=== PATIENT | male | born 1960 | race Caucasian/White ===

== ENCOUNTER 2016-07-08 15:55 | Inpatient (IN) | payer OTHER ==
[~2016-07-08] VITALS: Ht 182.9 cm; Wt 69.7 kg
[2016-07-08 20:40] VITALS: BP 106/69; PULSE 84; RESP 20
[2016-07-08 20:51] VITALS: Ht 182.9 cm; Wt 69.7 kg
[2016-07-08] MEDS ORDERED: DOCUSATE SODIUM 250 MG CAP PO PRN (21:30)
[2016-07-08] MEDS ORDERED: SENNA TAB PO PRN (21:30)
[2016-07-08] MEDS ORDERED: ONDANSETRON 4 MG INJ IV PRN (21:30)
[2016-07-08] MEDS: METOPROLOL 25 MG TAB PO SCH (21:30)
[2016-07-08] MEDS ORDERED: HYDROCODONE/APAP (10/325) TAB PO PRN (21:30)
[2016-07-08] MEDS: morphine 4 MG/ML VIAL IV PRN (22:46)
[2016-07-09 03:44] LABS: ADD UMIC NO; URINE BILIRUBIN (Dip) NEGATIVE (NEGATIVE); URINE BLOOD (Dip) NEGATIVE (NEGATIVE); URINE COLOR YELLOW (YELLOW); URINE GLUCOSE (Dip) NEGATIVE (NEGATIVE); URINE KETONES (Dip) NEGATIVE (NEGATIVE); URINE LEUKOCYTE ESTERASE (Dip) NEGATIVE (NEGATIVE); URINE NITRITE (Dip) NEGATIVE (NEGATIVE); URINE TOTAL PROTEIN (Dip) NEGATIVE (NEGATIVE); URINE UROBILINOGEN (Dip) 0.2 E.U./dL (0.1-1.0)
[2016-07-09] MEDS: HYDROCODONE/APAP (10/325) TAB PO PRN ×2 (04:12→13:24)
[2016-07-09 07:09] LABS: ADD SCAN DIFF NO
[2016-07-09 07:13] LABS: BASOPHILS % 0.4 % (0.0-2.0); EOSINOPHILS # 0.3 10^3/ul (0.0-0.5); EOSINOPHILS % 4.5 % (0.0-7.0); HEMATOCRIT 32.4 % (42.0-52.0); HEMOGLOBIN 10.2 g/dl (14.0-18.0); LYMPHOCYTES # 2.6 10^3/ul (0.8-2.9); LYMPHOCYTES % 35.3 % (15.0-51.0); MEAN CORPUSCULAR HEMOGLOBIN 32.5 pg (29.0-33.0); MEAN CORPUSCULAR HGB CONC 31.5 g/dl (32.0-37.0); MEAN CORPUSCULAR VOLUME 103.2 fl (82.0-101.0); MEAN PLATELET VOLUME 10.2 fl (7.4-10.4); MONOCYTE # 0.9 10^3/ul (0.3-0.9); MONOCYTES % 12.9 % (0.0-11.0); NEUTROPHIL # 3.4 10^3/ul (1.6-7.5); NEUTROPHILS % 46.8 % (39.0-77.0); PLATELET COUNT 201 10^3/UL (140-415); RED BLOOD COUNT 3.14 10^6/ul (4.70-6.10); RED CELL DISTRIBUTION WIDTH 11.9 % (11.5-14.5); WHITE BLOOD COUNT 7.3 10^3/ul (4.8-10.8)
[2016-07-09 07:31] LABS: ALBUMIN 2.9 g/dl (3.3-4.9)
[2016-07-09 07:32] LABS: POTASSIUM 3.9 mmol/L (3.5-5.1)
[2016-07-09 07:34] LABS: BILIRUBIN,INDIRECT 0.7 mg/dl (0-1.1); BILIRUBIN,TOTAL 0.7 mg/dl (0.2-1.3); CREATININE 0.84 mg/dl (0.61-1.24)
[2016-07-09 07:35] LABS: ALBUMIN/GLOBULIN RATIO 0.96; CALCIUM 8.2 mg/dl (8.4-10.2); TOTAL PROTEIN 5.9 g/dl (6.1-8.1)
[2016-07-09 07:48] VITALS: BP 110/71; RESP 18
[2016-07-09] MEDS: morphine 4 MG/ML VIAL IV PRN ×2 (08:26→18:50)
[2016-07-09] MEDS: METOPROLOL 25 MG TAB PO SCH ×2 (08:29→20:50)
--- NOTE | 2016-07-09 11:10 | HP ---
DATE OF ADMISSION: 07/08/2016 CHIEF COMPLAINT: Status post total right knee replacement. HISTORY OF PRESENT ILLNESS: A 56-year-old male with a past medical history of right knee osteoarthr itis related to a work injury on 10/13/2011. The patient since that injury has had difficulty walkin g, failed conservative management. As a result, he was seen by Dr. Baugh and told that he had sever e osteoarthritis with a determination made to undergo total right knee arthroplasty. This surgery w as performed on 07/05/2016. The patient's surgery was done without any complication. Postoperativel y, the patient was stable; however, he had a significant decline in premorbid condition and as a res ult he was brought over to [facility] acute rehab for continued physical therapy. Upon my evaluation of the patient at this time, he is currently stable. Denies any fevers, chills, nausea, vomiting. The patient is complaining of pain in his right knee PAST MEDICAL HISTORY: History of hypertension, previous history of polysubstance abuse. PAST SURGICAL HISTORY: None. ALLERGIES: NO KNOWN DRUG ALLERGIES. FAMILY HISTORY: No family history of kidney disease or heart disease. SOCIAL HISTORY: Does not actively drink, previous history of drug use. REVIEW OF SYSTEMS: A 14-point review of systems was conducted. Pertinent positives as stated in HP I, otherwise negative. MEDICATIONS: The patient's medications have been reviewed and reconciled. PHYSICAL EXAMINATION: VITAL SIGNS: Blood pressure 110/71, respirations 18, pulse 89, temperature 97.9. HEENT: Head is normocephalic. Pupils are reactive to light. NECK: Supple. HEART: Regular rate. LUNGS: Show diminished breath sounds at the base. ABDOMEN: Soft, nontender to palpation. No rebound or guarding. EXTREMITIES: Negative for clubbing, cyanosis, edema on the left leg. Right leg has dressings clean , dry, intact. NEUROLOGIC: No focal deficits. MUSCULOSKELETAL: No joint effusions. LABORATORY DATA: Shows sodium 139, potassium 3.9, chloride 28, BUN 14, creatinine 0.84. White coun t 7.3, hemoglobin 10.2, hematocrit 32.4, platelet count is 201. ASSESSMENT AND PLAN: This is a 56-year-old male who presents with: 1. Status post total right knee arthroplasty. The plan is for the patient received PT, OT. Contin ue pain control. 2. Deep venous thrombosis prophylaxis with Xarelto. 3. Hypertension. Blood pressure currently controlled. Continue hydralazine, metoprolol and adjust medications as needed. 4. History of polysubstance abuse. Will continue to monitor. 5. Anemia, likely due to postoperative blood loss. Continue to monitor H and H levels. No evidenc e of bleed at this time. 6. Gastrointestinal and deep venous thrombosis prophylaxis. Continue PPI and Xarelto. 7. Chronic pain syndrome. Continue current pain regimen. Please note, I spent up to 25 minutes of face to face time with the patient. The patient is FULL COD E. Dictated By: EMILY SCHROEDER/RANDALL Conf#: [id number] DID#: [id number]
[2016-07-09] MEDS: PANTOPRAZOLE (EC) 40 MG TAB PO SCH (11:14)
--- NOTE | 2016-07-09 12:44 | CONS ---
DATE OF ADMISSION: 07/08/2016 DATE OF CONSULTATION: 07/09/2016 TYPE OF CONSULTATION: Rehabilitation post-admission physician evaluation REHABILITATION IMPAIRMENT CATEGORY: Other orthopedic injury with patient status post right total kn ee replacement. ACTIVE COMORBIDITIES: 1. Acute pain syndrome. 2. History of substance abuse. 3. Hypertension. 4. Impairments in self-care and mobility. HISTORY OF PRESENT ILLNESS: The patient is a 56-year-old gentleman with a history of related injur y in 2011 with subsequent worsening right knee pain despite conservative measures. The patient was admitted to [facility] and did undergo a right total knee replacement. The patient's pos toperative course has been notable for significant pain in addition to impairments in self-care and mobility as compared to baseline. The patient has now been cleared to transfer to the rehabilitatio n unit for comprehensive interdisciplinary rehab care. FUNCTIONAL HISTORY: Prior to recent events, he was independent in self-care tasks and mobility. Cu rrently, the patient requires minimal assist for self-care and mobility tasks. SOCIAL HISTORY: The patient reports living at home and hopes to return there upon discharge. PAST MEDICAL HISTORY: 1. Right knee osteoarthritis. 2. History of substance abuse. 3. Hypertension. CURRENT MEDICATIONS: 1. Lopressor 25 mg p.o. b.i.d. 2. Xarelto 10 mg p.o. daily. 3. Hydralazine 50 mg p.o. t.i.d. 4. Senokot p.r.n. 5. [place] p.r.n. ALLERGIES: THE PATIENT WITH NO KNOWN DRUG ALLERGIES. PHYSICAL EXAMINATION: VITAL SIGNS: The patient is currently afebrile with stable vital signs. HEENT: Extraocular motion intact. Oropharynx clear. NECK: Supple. LUNGS: Clear anteriorly. CARDIAC: S1, S2. ABDOMEN: Soft, nontender, positive bowel sounds. NEUROLOGIC: He is awake and alert and oriented x3, can follow simple 1-step commands. Cranial nerv es are grossly intact. He has good strength in bilateral upper extremity in addition to the left lo wer extremity. Dorsiflexion and plantar flexion intact on the right. PLAN: The patient has been admitted for comprehensive interdisciplinary acute rehab and is anticipa trina to tolerate 3 hours of daily therapy in divided doses for at least 5/7 days a week. Treatment p paula will include: 1. Physical therapy to focus on bed mobility, transfers, and household ambulation with the goal of having the patient reach standby assist level. 2. Occupational therapy to focus on hygiene, grooming, dressing, bathing, and toileting activities with goal of having the patient reach standby assist level. 3. Rehabilitation nursing for carryover of therapeutic interventions, the goal of continent of lonnie l and bladder, and the goal of pain adequately managed on oral medications. ESTIMATED LENGTH OF STAY: 10 days. DISPOSITION GOAL: Home. REHABILITATION BARRIER: Pain. INTERVENTION FOR BARRIER: Comprehensive interdisciplinary approach. I acknowledge that I performed a full physical examination on this patient within 24 hours of admiss ion to the rehabilitation unit. I believe the patient is a good candidate for comprehensive interdi sciplinary rehab care and is anticipated to make reasonable goals in a reasonable period of time as outlined above. Dictated By: DARYL PADGETT/NTS Conf#: [id number] DID#: [id number]
[2016-07-09] MEDS: RIVAROXABAN 10 MG TABLET PO SCH (17:42)
[2016-07-09 19:52] VITALS: BP 102/62; RESP 18
[2016-07-10] MEDS: HYDROCODONE/APAP (10/325) TAB PO PRN ×3 (00:22→17:46)
[2016-07-10] MEDS: morphine 4 MG/ML VIAL IV PRN ×3 (05:12→22:05)
[2016-07-10] MEDS: PANTOPRAZOLE (EC) 40 MG TAB PO SCH (05:12)
[2016-07-10 08:00] VITALS: BP 114/73; RESP 12
[2016-07-10] MEDS: METOPROLOL 25 MG TAB PO SCH ×2 (09:01→20:47)
--- NOTE | 2016-07-10 10:31 | PN ---
DATE: 07/10/2016 SUBJECTIVE: The patient is stable, no acute events overnight. No fevers, chills, nausea, vomiting. OBJECTIVE: VITAL SIGNS: Blood pressure 102/65, respirations 18, pulse 102, temperature 97.5. HEENT: Head is normocephalic. NECK: Supple. HEART: Regular rate. LUNGS: Show diminished breath sounds at the bases. ABDOMEN: Soft, nontender to palpation. No rebound or guarding. EXTREMITIES: Negative for clubbing, cyanosis, edema on the left leg. Right knee has a dressing, cl marcus, dry and intact. DERMATOLOGIC: No rashes. MUSCULOSKELETAL: No joint effusions. NEUROLOGIC: No focal deficits. MEDICATIONS: The patient's medications have been reviewed. LABORATORY DATA: Has been reviewed. No new labs. ASSESSMENT AND PLAN: 1. Status post total right knee arthroplasty. The patient currently is having pain, but controlled with medications, we will continue. Continue PT, OT. 2. Hypertension. Continue current blood pressure regimen. 3. History of polysubstance abuse. Continue to monitor. 4. Anemia, likely due to postoperative blood loss. Continue to monitor hemoglobin and hematocrit l evels. 5. Chronic pain syndrome. Continue current pain regimen. 6. Gastrointestinal and deep venous thrombosis prophylaxis. Continue proton pump inhibitor and Xar elto. Dictated By: EMILY SCHROEDER/RANDALL Conf#: [id number] DID#: [id number]
--- NOTE | 2016-07-10 13:19 | PN ---
Date/Time of Note Date/Time of Note DATE: 07/10/16 TIME: 13:16 Assessment/Plan VTE Prophylaxis VTE Prophylaxis Intervention: other (xarelto) Lines/Catheters IV Catheter Type (from Nrsg): Saline Lock Urinary Cath still in place: No Assessment/Plan Assessment/Plan 1. Status post right total knee arthroplasty. With impaired mobility/gait/ADLs. Continue PT/OT. Bed mobility and transfers improving now stand by assistance. 2. Acute post op pain syndrome with baseline chronic pain syndrome, and history of substance abuse. Pain controlled, continue current regimen including prn norco. 3. Anemia. Monitor hemoglobin/hematocrit. 4. Hypertension. BP controlled. Continue to monitor BP. Subjective 24 Hr Interval Summary Free Text/Dictation Rehab progress note Subjective:Reports moderate pain currently in right knee, reports alleviated with pain medications. ROS: Denies chest pain, no shortness of breath, no abdominal pain, no nausea, no chills. Exam/Review of Systems Vital Signs Vitals Vital Signs Date Time Temp Pulse Resp B/P Pulse Ox O2 Delivery O2 Flow Rate FiO2 07/10/16 08:00 99.0 104 12 114/73 96 07/08/16 20:40 Room Air Intake and Output 07/09/16 07/09/16 07/10/16 15:00 23:00 07:00 Intake Total 480 ml 240 ml 500 ml Output Total 600 ml 300 ml 700 ml Balance -120 ml -60 ml -200 ml Exam General: Awake, alert, no acute distress CV: Regular rate, s1s2 Lungs: Clear to auscultation, no wheezing Abdomen soft, nontender Extremities without cyanosis, Right knee surgical site with dressing in place, clean and dry Neuro: Follows simple commands. R DF/PF intact. Results Result Diagram: 07/09/16 0611 07/09/16 0611 Medications Medications Current Medications Metoprolol Tartrate (Lopressor) 25 mg BID PO Last administered on 07/10/16 09: 01; Admin Dose 25 MG; Start 07/08/16 at 21:30 Rivaroxaban (Xarelto) 10 mg DAILY@17 PO Last administered on 07/09/16 17:42; Admin Dose 10 MG; Start 07/09/16 at 17:00 Docusate Sodium (Colace) 250 mg BID PRN PO CONSTIPATION; Start 3/23/17 at 21: 30 Hydralazine HCl (Apresoline) 50 mg TID PO Last administered on 07/10/16 09:01 ; Admin Dose 50 MG; Start 07/08/16 at 21:30 Ondansetron HCl (Zofran Inj) 4 mg Q4H PRN IV NAUSEA AND/OR VOMITING; Start at 21:30 Senna (Senokot) 1 tab HS PRN PO CONSTIPATION; Start 07/08/16 at 21:30 Morphine Sulfate (morphine) 3 mg Q3H PRN IV SEVERE PAIN LEVEL 7-10 Last administered on 07/10/16 13:07; Admin Dose 3 MG; Start 07/08/16 at 21:30 Acetaminophen/ Hydrocodone Bitart ([place] (10/325)) 1 tab Q4H PRN PO MILD PAIN LEVEL 1-3; Start 07/08/16 at 21:30 Acetaminophen/ Hydrocodone Bitart ([place] (10/325)) 2 tab Q4H PRN PO MODERATE PAIN LEVEL 4-6 Last administered on 07/10/16 09:02; Admin Dose 2 TAB; Start at 21:30 Pantoprazole (Protonix Tab) 40 mg DAILY@06 PO Last administered on 07/10/16 05 :12; Admin Dose 40 MG; Start 07/09/16 at 10:30 FAREED SILVA Jul 10, 2016 13:19
[2016-07-10] MEDS: RIVAROXABAN 10 MG TABLET PO SCH (17:45)
[2016-07-10 19:59] VITALS: BP 112/70; RESP 18
[2016-07-10] MEDS: DOCUSATE SODIUM 100 MG CAP PO SCH (20:55)
[2016-07-11] MEDS: HYDROCODONE/APAP (10/325) TAB PO PRN ×3 (03:50→22:27)
[2016-07-11] MEDS: PANTOPRAZOLE (EC) 40 MG TAB PO SCH (06:31)
[2016-07-11 07:35] VITALS: BP 107/65; RESP 18
[2016-07-11 08:05] LABS: ADD SCAN DIFF NO
[2016-07-11 08:11] LABS: BASOPHILS % 0.5 % (0.0-2.0); EOSINOPHILS # 0.3 10^3/ul (0.0-0.5); EOSINOPHILS % 3.8 % (0.0-7.0); HEMATOCRIT 30.6 % (42.0-52.0); HEMOGLOBIN 9.8 g/dl (14.0-18.0); LYMPHOCYTES # 2.9 10^3/ul (0.8-2.9); LYMPHOCYTES % 43.9 % (15.0-51.0); MEAN PLATELET VOLUME 10.1 fl (7.4-10.4); MONOCYTE # 0.8 10^3/ul (0.3-0.9); MONOCYTES % 12.7 % (0.0-11.0); NEUTROPHIL # 2.5 10^3/ul (1.6-7.5); NEUTROPHILS % 38.8 % (39.0-77.0); PLATELET COUNT 225 10^3/UL (140-415); RED BLOOD COUNT 2.97 10^6/ul (4.70-6.10); RED CELL DISTRIBUTION WIDTH 11.6 % (11.5-14.5); WHITE BLOOD COUNT 6.5 10^3/ul (4.8-10.8)
[2016-07-11] MEDS: METOPROLOL 25 MG TAB PO SCH ×2 (09:00→21:00)
[2016-07-11] MEDS: DOCUSATE SODIUM 100 MG CAP PO SCH ×2 (09:21→21:00)
[2016-07-11] MEDS: morphine 4 MG/ML VIAL IV PRN ×2 (09:21→16:51)
--- NOTE | 2016-07-11 10:09 | PN ---
DATE: 07/11/2016 SUBJECTIVE: The patient is stable, no acute events overnight. OBJECTIVE: VITAL SIGNS: Blood pressure 107/65, respirations 18, pulse 79, temperature 98.4. HEENT: Head is normocephalic. NECK: Supple. HEART: Regular rate. LUNGS: Show diminished breath sounds at the base. ABDOMEN: Soft, nontender to palpation; no rebound or guarding. EXTREMITIES: Negative for clubbing, cyanosis, or edema on the left leg. Right knee has dressing cl marcus, dry, intact. DERMATOLOGIC: No rashes. MUSCULOSKELETAL: No joint effusion. NEUROLOGIC: No change in exam. MEDICATIONS: The patient's medications have been reviewed. LABORATORY DATA: Shows white count 6.5, hemoglobin 9.8, hematocrit 30.6, platelet count is 225. ASSESSMENT AND PLAN: 1. Status post total right knee arthroplasty. The patient is currently stable. Continue pain medi cation. Continue PT, OT. 2. Hypertension. Continue current blood pressure regimen. 3. History of polysubstance abuse. Continue to monitor. 4. Anemia. Continue to monitor H and H levels. 5. Chronic pain syndrome. Continue current pain regimen. 6. Gastrointestinal and deep venous thrombosis prophylaxis. Continue proton pump inhibitor and Xar elto. Dictated By: EMILY SCHROEDER/RANDALL Conf#: [id number] DID#: [id number]
--- NOTE | 2016-07-11 10:59 | PN ---
Date/Time of Note Date/Time of Note DATE: 07/11/16 TIME: 10:58 Assessment/Plan VTE Prophylaxis VTE Prophylaxis Intervention: other (xarelto) Lines/Catheters IV Catheter Type (from Nrsg): Saline Lock Urinary Cath still in place: No Assessment/Plan Assessment/Plan 1. Status post right total knee arthroplasty. With impaired mobility/gait/ADLs. Continue PT/OT. Lower body dressing with contact guard assistance, Toileting with stand by assistance. 2. Acute post operative pain syndrome with baseline chronic pain syndrome, and history of substance abuse. Pain controlled, continue current pain regimen. 3. Anemia. Monitor hemoglobin/hematocrit, fairly stable on labs today. 4. Hypertension. BP controlled. Continue current medical management. Subjective 24 Hr Interval Summary Free Text/Dictation Rehab progress note Subjective: Reports moderate pain currently in right knee. No acute overnight events per nursing staff. ROS: Denies headache, no dizziness, no chest pain, no shortness of breath, no abdominal pain, no nausea. Exam/Review of Systems Vital Signs Vitals Vital Signs Date Time Temp Pulse Resp B/P Pulse Ox O2 Delivery O2 Flow Rate FiO2 07/11/16 07:35 98.4 79 18 107/65 98 07/08/16 20:40 Room Air Intake and Output 07/10/16 07/10/16 07/11/16 15:00 23:00 07:00 Intake Total 300 ml 240 ml Output Total 350 ml 600 ml Balance -50 ml -360 ml Exam General: Laying in bed, awake, alert, no acute distress CV: Regular rate, s1s2 audible Lungs: Symmetrical air entry bilaterally, respirations nonlabored, no crackles, no wheezing Abdomen soft, nontender, +bowel sounds Extremities without cyanosis, Right knee surgical site with dressing and TERI wrapping in place Neuro: No new focal changes. No new sensory changes. Antigravity strength BUE. Wiggles toes on the right. Results Result Diagram: 07/11/16 0630 07/09/16 0611 Results 24 hrs Laboratory Tests Test 07/11/16 06:30 White Blood Count 6.5 Red Blood Count 2.97 L Hemoglobin 9.8 L Hematocrit 30.6 L Mean Corpuscular Volume 103.0 H Mean Corpuscular Hemoglobin 33.0 Mean Corpuscular Hemoglobin Concent 32.0 Red Cell Distribution Width 11.6 Platelet Count 225 Mean Platelet Volume 10.1 Neutrophils % 38.8 L Lymphocytes % 43.9 Monocytes % 12.7 H Eosinophils % 3.8 Basophils % 0.5 Nucleated Red Blood Cells % 0.0 Neutrophils # 2.5 Lymphocytes # 2.9 Monocytes # 0.8 Eosinophils # 0.3 Basophils # 0.0 Nucleated Red Blood Cells # 0.0 Medications Medications Current Medications Metoprolol Tartrate (Lopressor) 25 mg BID PO Last administered on 07/10/16 20: 47; Admin Dose 25 MG; Start 07/08/16 at 21:30 Rivaroxaban (Xarelto) 10 mg DAILY@17 PO Last administered on 07/10/16 17:45; Admin Dose 10 MG; Start 07/09/16 at 17:00 Hydralazine HCl (Apresoline) 50 mg TID PO Last administered on 07/10/16 20:47 ; Admin Dose 50 MG; Start 07/08/16 at 21:30 Ondansetron HCl (Zofran Inj) 4 mg Q4H PRN IV NAUSEA AND/OR VOMITING; Start at 21:30 Senna (Senokot) 1 tab HS PRN PO CONSTIPATION; Start 07/08/16 at 21:30 Morphine Sulfate (morphine) 3 mg Q3H PRN IV SEVERE PAIN LEVEL 7-10 Last administered on 07/11/16 09:21; Admin Dose 3 MG; Start 07/08/16 at 21:30 Acetaminophen/ Hydrocodone Bitart ([place] (10/325)) 1 tab Q4H PRN PO MILD PAIN LEVEL 1-3; Start 07/08/16 at 21:30 Acetaminophen/ Hydrocodone Bitart ([place] (10/325)) 2 tab Q4H PRN PO MODERATE PAIN LEVEL 4-6 Last administered on 07/11/16 03:50; Admin Dose 2 TAB; Start at 21:30 Pantoprazole (Protonix Tab) 40 mg DAILY@06 PO Last administered on 07/11/16 06 :31; Admin Dose 40 MG; Start 07/09/16 at 10:30 Docusate Sodium (Colace) 100 mg BID PO Last administered on 07/11/16 09:21; Admin Dose 100 MG; Start 07/10/16 at 21:00 FAREED SILVA Jul 11, 2016 10:59
[2016-07-11] MEDS: RIVAROXABAN 10 MG TABLET PO SCH (16:51)
[2016-07-11 20:31] VITALS: BP 123/76; RESP 18
[2016-07-12] MEDS: morphine 4 MG/ML VIAL IV PRN ×3 (03:21→20:59)
[2016-07-12] MEDS: PANTOPRAZOLE (EC) 40 MG TAB PO SCH (06:01)
[2016-07-12 07:30] VITALS: BP 112/76; RESP 18
[2016-07-12] MEDS: DOCUSATE SODIUM 100 MG CAP PO SCH ×2 (09:04→20:15)
[2016-07-12] MEDS: METOPROLOL 25 MG TAB PO SCH ×2 (09:05→20:16)
[2016-07-12] MEDS: HYDROCODONE/APAP (10/325) TAB PO PRN ×2 (09:09→16:23)
--- NOTE | 2016-07-12 11:06 | PN ---
DATE: 07/12/2016 SUBJECTIVE: The patient is stable, no acute events overnight. No fevers, no nausea, no vomiting, n o shortness of breath. OBJECTIVE: VITAL SIGNS: Blood pressure 123/76, respiration 18, pulse 85, temperature 98.3. HEENT: Head is normocephalic. NECK: Supple. HEART: Regular rate. LUNGS: Show diminished breath sounds at the base. ABDOMEN: Soft, nontender to palpation without rebound or guarding. EXTREMITIES: Negative for clubbing, cyanosis, no edema. DERMATOLOGIC: No rashes. MUSCULOSKELETAL: The patient has dressing over his knee. NEUROLOGIC: No focal deficits. MEDICATIONS: Have been reviewed. LABORATORY DATA: Have been reviewed. No new labs. ASSESSMENT AND PLAN: 1. Status post total right knee arthroplasty. The patient is currently stable. Continue current p ain management. Continue PT, OT. 2. Hypertension. Continue current blood pressure regimen. 3. History of polysubstance abuse. 4. Anemia. Continue to monitor hemoglobin and hematocrit. 5. Chronic pain syndrome. Continue current pain regimen. 6. GI and DVT prophylaxis. Continue proton pump inhibitor and Xarelto. Dictated By: EMILY SCHROEDER/NTS Conf#: [id number] DID#: [id number]
[2016-07-12 12:15] VITALS: BP 130/57; PULSE 98; RESP 18
--- NOTE | 2016-07-12 13:28 | CONS ---
Date/Time of Note Date/Time of Note DATE: 07/12/16 TIME: 13:28 Consult Date/Type/Reason Admit Date/Time Jul 08, 2016 at 20:14 Initial Consult Date Subjective no new complaints Objective Vital Signs Date Time Temp Pulse Resp B/P Pulse Ox O2 Delivery O2 Flow Rate FiO2 07/12/16 12:15 98 18 130/57 Room Air 07/11/16 20:31 98.3 98 Intake and Output 07/11/16 07/11/16 07/12/16 14:59 22:59 06:59 Intake Total 720 ml 360 ml 720 ml Output Total 1020 ml 400 ml 1300 ml Balance -300 ml -40 ml -580 ml INTERDISCIPLINARY TEAM CONFERENCE BOWEL- Cont BLADDER-Cont SKIN- intact OT- DRESSING-s BATHING-s TOILETING-s PT- BED MOBILITY-sba TRANSFERS-sba AMBULATION-sba 150 feet W.C. MOBILITY A/P- Interdisciplinary team conference held today. Please see interdisciplinary sheet. Working toward d.c. on 07/15 with post discharge follow up of physical therapy, occupational therapy. Results/Medications Result Diagram: 07/11/16 0630 07/09/16 0611 Medications Current Medications Metoprolol Tartrate (Lopressor) 25 mg BID PO Last administered on 07/12/16 09: 05; Admin Dose 25 MG; Start 07/08/16 at 21:30 Rivaroxaban (Xarelto) 10 mg DAILY@17 PO Last administered on 07/11/16 16:51; Admin Dose 10 MG; Start 07/09/16 at 17:00 Hydralazine HCl (Apresoline) 50 mg TID PO Last administered on 07/12/16 13:18 ; Admin Dose 50 MG; Start 07/08/16 at 21:30 Ondansetron HCl (Zofran Inj) 4 mg Q4H PRN IV NAUSEA AND/OR VOMITING; Start at 21:30 Senna (Senokot) 1 tab HS PRN PO CONSTIPATION; Start 07/08/16 at 21:30 Morphine Sulfate (morphine) 3 mg Q3H PRN IV SEVERE PAIN LEVEL 7-10 Last administered on 07/12/16 12:18; Admin Dose 3 MG; Start 07/08/16 at 21:30 Acetaminophen/ Hydrocodone Bitart ([place] (10/325)) 1 tab Q4H PRN PO MILD PAIN LEVEL 1-3; Start 07/08/16 at 21:30 Acetaminophen/ Hydrocodone Bitart ([place] ()) 2 tab Q4H PRN PO MODERATE PAIN LEVEL 4-6 Last administered on 07/12/16 09:09; Admin Dose 2 TAB; Start at 21:30 Pantoprazole (Protonix Tab) 40 mg DAILY@06 PO Last administered on 07/12/16 06 :01; Admin Dose 40 MG; Start 07/09/16 at 10:30 Docusate Sodium (Colace) 100 mg BID PO Last administered on 07/12/16 09:04; Admin Dose 100 MG; Start 07/10/16 at 21:00 DARYL PORTER MD Jul 12, 2016 13:28
[2016-07-12] MEDS: RIVAROXABAN 10 MG TABLET PO SCH (16:22)
[2016-07-12 19:39] VITALS: BP 121/67; RESP 19
[2016-07-13] MEDS: HYDROCODONE/APAP (10/325) TAB PO PRN ×3 (03:00→17:42)
[2016-07-13] MEDS: PANTOPRAZOLE (EC) 40 MG TAB PO SCH (06:29)
[2016-07-13 08:06] VITALS: BP 111/58; RESP 18
[2016-07-13] MEDS: morphine 4 MG/ML VIAL IV PRN ×3 (08:29→20:56)
[2016-07-13] MEDS: DOCUSATE SODIUM 100 MG CAP PO SCH ×2 (08:29→20:56)
[2016-07-13] MEDS: METOPROLOL 25 MG TAB PO SCH ×2 (08:33→21:04)
--- NOTE | 2016-07-13 10:52 | CONS ---
Date/Time of Note Date/Time of Note DATE: 07/13/16 TIME: 10:52 Consult Date/Type/Reason Admit Date/Time Jul 08, 2016 at 20:14 Subjective Doing well Objective pulm-cta abd-soft Vital Signs Date Time Temp Pulse Resp B/P Pulse Ox O2 Delivery O2 Flow Rate FiO2 07/13/16 08:06 98.3 84 18 111/58 98 07/12/16 12:15 Room Air Intake and Output 07/12/16 07/12/16 07/13/16 14:59 22:59 06:59 Intake Total 620 ml 300 ml Output Total 480 ml 800 ml Balance 140 ml -500 ml Results/Medications Result Diagram: 07/11/16 0630 07/09/16 0611 Medications Current Medications Metoprolol Tartrate (Lopressor) 25 mg BID PO Last administered on 07/12/16 20: 16; Admin Dose 25 MG; Start 07/08/16 at 21:30 Rivaroxaban (Xarelto) 10 mg DAILY@17 PO Last administered on 07/12/16 16:22; Admin Dose 10 MG; Start 07/09/16 at 17:00 Hydralazine HCl (Apresoline) 50 mg TID PO Last administered on 07/12/16 20:17 ; Admin Dose 50 MG; Start 07/08/16 at 21:30 Ondansetron HCl (Zofran Inj) 4 mg Q4H PRN IV NAUSEA AND/OR VOMITING; Start at 21:30 Senna (Senokot) 1 tab HS PRN PO CONSTIPATION; Start 07/08/16 at 21:30 Morphine Sulfate (morphine) 3 mg Q3H PRN IV SEVERE PAIN LEVEL 7-10 Last administered on 07/13/16 08:29; Admin Dose 3 MG; Start 07/08/16 at 21:30 Acetaminophen/ Hydrocodone Bitart ([place] (10/325)) 1 tab Q4H PRN PO MILD PAIN LEVEL 1-3; Start 07/08/16 at 21:30 Acetaminophen/ Hydrocodone Bitart ([place] (10/325)) 2 tab Q4H PRN PO MODERATE PAIN LEVEL 4-6 Last administered on 07/13/16 10:14; Admin Dose 2 TAB; Start at 21:30 Pantoprazole (Protonix Tab) 40 mg DAILY@06 PO Last administered on 07/13/16 06 :29; Admin Dose 40 MG; Start 07/09/16 at 10:30 Docusate Sodium (Colace) 100 mg BID PO Last administered on 07/13/16 08:29; Admin Dose 100 MG; Start 07/10/16 at 21:00 Assessment/Plan Additional Assessment/Plan Rehab- right total knee replacement. Continue rehab program Acute pain syndrome-improved History of substance abuse. Hypertension. DARYL PORTER MD Jul 13, 2016 10:52
--- NOTE | 2016-07-13 12:38 | PN ---
DATE: 07/13/2016 SUBJECTIVE: The patient is stable, no acute events overnight. No fevers, chills, nausea, vomiting. No shortness of breath. OBJECTIVE: VITAL SIGNS: Blood pressure is 111/58, respirations 18, pulse 84, temperature 98.3. HEENT: Head is normocephalic. NECK: Supple. HEART: Regular rate. LUNGS: Show diminished breath sounds at the base. ABDOMEN: Soft, nontender to palpation without rebound or guarding. EXTREMITIES: Negative for clubbing, cyanosis, edema. DERMATOLOGIC: No rashes. MUSCULOSKELETAL: No joint effusions. NEUROLOGIC: No change in exam. MEDICATIONS: Reviewed. LABORATORY DATA: Have been reviewed. No new labs. ASSESSMENT AND PLAN: 1. Status post total right knee arthroplasty. The patient is currently stable. Continue physical therapy, occupational therapy, pain control. 2. Hypertension. Continue blood pressure regimen. 3. Anemia. Continue to monitor hemoglobin and hematocrit levels. 4. Chronic pain syndrome. Continue current pain regimen. 5. History of polysubstance abuse. 6. Gastrointestinal and deep venous thrombosis prophylaxis. Continue proton pump inhibitor, Xarelt o. Dictated By: EMILY SCHROEDER/RANDALL Conf#: [id number] DID#: [id number]
[2016-07-13] MEDS: RIVAROXABAN 10 MG TABLET PO SCH (17:39)
[2016-07-13 19:58] VITALS: BP 113/74; RESP 19
[2016-07-14] MEDS: HYDROCODONE/APAP (10/325) TAB PO PRN ×3 (04:36→21:25)
[2016-07-14] MEDS: PANTOPRAZOLE (EC) 40 MG TAB PO SCH (05:30)
[2016-07-14] MEDS: METOPROLOL 25 MG TAB PO SCH ×2 (08:48→21:25)
[2016-07-14] MEDS: morphine 4 MG/ML VIAL IV PRN ×2 (08:50→17:13)
[2016-07-14] MEDS: DOCUSATE SODIUM 100 MG CAP PO SCH ×2 (08:50→21:24)
[2016-07-14 09:53] VITALS: BP 94/56; RESP 18
--- NOTE | 2016-07-14 10:16 | PN ---
DATE: 07/14/2016 SUBJECTIVE: The patient is stable, no acute events overnight. No fevers, chills, nausea, vomiting. No shortness of breath. OBJECTIVE: VITAL SIGNS: Blood pressure 132/74, respirations 19, pulse 108, temperature 98.8. HEENT: Head is normocephalic. NECK: Supple. HEART: Regular rate. LUNGS: Show diminished breath sounds at the bases. ABDOMEN: Soft, nontender to palpation. No rebound or guarding. EXTREMITIES: Negative for clubbing, cyanosis. No edema. DERMATOLOGIC: No rashes. MUSCULOSKELETAL: No joint effusions. NEUROLOGIC: No change in exam. MEDICATIONS: The patient's medications have been reviewed. LABORATORY DATA: Have been reviewed. No new labs. ASSESSMENT AND PLAN: 1. Status post right knee arthroplasty. The patient is currently stable. Continue PT, OT. Contin ue pain control. 2. Hypertension. Continue current blood pressure regimen. 3. Anemia. Continue to monitor hemoglobin and hematocrit levels. 4. Chronic pain syndrome. Continue current pain regimen. 5. History of polysubstance abuse. 6. Gastrointestinal and deep venous thrombosis prophylaxis. Continue proton pump inhibitor and Xar elto. Dictated By: EMILY SCHROEDER/RANDALL Conf#: [id number] DID#: [id number]
--- NOTE | 2016-07-14 12:30 | CONS ---
Date/Time of Note Date/Time of Note DATE: 07/14/16 TIME: 12:29 Consult Date/Type/Reason Admit Date/Time Jul 08, 2016 at 20:14 Subjective no complaints Objective pulm-cta sba ambulation Vital Signs Date Time Temp Pulse Resp B/P Pulse Ox O2 Delivery O2 Flow Rate FiO2 07/14/16 09:53 98.2 89 18 94/56 98 07/12/16 12:15 Room Air Intake and Output 07/13/16 07/13/16 07/14/16 14:59 22:59 06:59 Intake Total 720 ml 360 ml 200 ml Output Total 800 ml 550 ml 900 ml Balance -80 ml -190 ml -700 ml Results/Medications Result Diagram: 07/11/16 0630 Medications Current Medications Metoprolol Tartrate (Lopressor) 25 mg BID PO Last administered on 07/13/16 21: 04; Admin Dose 25 MG; Start 07/08/16 at 21:30 Rivaroxaban (Xarelto) 10 mg DAILY@17 PO Last administered on 07/13/16 17:39; Admin Dose 10 MG; Start 07/09/16 at 17:00 Hydralazine HCl (Apresoline) 50 mg TID PO Last administered on 07/13/16 20:56 ; Admin Dose 50 MG; Start 07/08/16 at 21:30 Ondansetron HCl (Zofran Inj) 4 mg Q4H PRN IV NAUSEA AND/OR VOMITING; Start at 21:30 Senna (Senokot) 1 tab HS PRN PO CONSTIPATION; Start 07/08/16 at 21:30 Morphine Sulfate (morphine) 3 mg Q3H PRN IV SEVERE PAIN LEVEL 7-10 Last administered on 07/14/16 08:50; Admin Dose 3 MG; Start 07/08/16 at 21:30 Acetaminophen/ Hydrocodone Bitart ([place] (10/325)) 1 tab Q4H PRN PO MILD PAIN LEVEL 1-3; Start 07/08/16 at 21:30 Acetaminophen/ Hydrocodone Bitart ([place] (10/325)) 2 tab Q4H PRN PO MODERATE PAIN LEVEL 4-6 Last administered on 07/14/16 04:36; Admin Dose 2 TAB; Start at 21:30 Pantoprazole (Protonix Tab) 40 mg DAILY@06 PO Last administered on 07/14/16 05 :30; Admin Dose 40 MG; Start 07/09/16 at 10:30 Docusate Sodium (Colace) 100 mg BID PO Last administered on 07/14/16 08:50; Admin Dose 100 MG; Start 07/10/16 at 21:00 Assessment/Plan Additional Assessment/Plan Rehab- right total knee replacement. Continue rehab Acute pain syndrome-improved History of substance abuse. Hypertension. DARYL PORTER MD Jul 14, 2016 12:30
[2016-07-14] MEDS: RIVAROXABAN 10 MG TABLET PO SCH (17:12)
[2016-07-14 20:02] VITALS: BP 136/79; RESP 20
[2016-07-15] MEDS: morphine 4 MG/ML VIAL IV PRN ×3 (04:22→20:19)
[2016-07-15] MEDS: PANTOPRAZOLE (EC) 40 MG TAB PO SCH (05:48)
[2016-07-15 06:34] LABS: ADD SCAN DIFF NO
[2016-07-15 06:39] LABS: BASOPHILS % 0.6 % (0.0-2.0); EOSINOPHILS # 0.2 10^3/ul (0.0-0.5); EOSINOPHILS % 2.5 % (0.0-7.0); HEMOGLOBIN 9.9 g/dl (14.0-18.0); LYMPHOCYTES # 3.1 10^3/ul (0.8-2.9); LYMPHOCYTES % 43.2 % (15.0-51.0); MEAN CORPUSCULAR HGB CONC 31.9 g/dl (32.0-37.0); MEAN CORPUSCULAR VOLUME 103.3 fl (82.0-101.0); MEAN PLATELET VOLUME 9.3 fl (7.4-10.4); MONOCYTES % 13.4 % (0.0-11.0); NEUTROPHIL # 2.9 10^3/ul (1.6-7.5); PLATELET COUNT 349 10^3/UL (140-415); WHITE BLOOD COUNT 7.2 10^3/ul (4.8-10.8)
[2016-07-15 06:59] LABS: POTASSIUM 4.2 mmol/L (3.5-5.1)
[2016-07-15 07:02] LABS: CREATININE 0.86 mg/dl (0.61-1.24)
[2016-07-15 07:03] LABS: CALCIUM 8.7 mg/dl (8.4-10.2); MAGNESIUM 1.9 mg/dl (1.7-2.5); PHOSPHORUS 3.9 mg/dl (2.5-4.9)
[2016-07-15 07:30] VITALS: BP 107/69; RESP 18
--- NOTE | 2016-07-15 08:45 | PN ---
DATE: 07/15/2016 SUBJECTIVE: The patient is stable. No acute events overnight. No fevers, chills, nausea or vomiti ng. No shortness of breath. OBJECTIVE: VITAL SIGNS: Blood pressure 136/79, respirations 20, pulse 110, temperature 98.0. HEENT: Head is normocephalic. NECK: Supple. HEART: Regular rate. LUNGS: Showed diminished breath sounds at the base. ABDOMEN: Soft, nontender to palpation. No rebound or guarding. EXTREMITIES: Negative for clubbing or cyanosis. No edema. DERMATOLOGIC: No rashes. MUSCULOSKELETAL: Positive dressing over the right knee. NEUROLOGIC: No focal deficits. MEDICATIONS: Have been reviewed. LABORATORY DATA: Shows white count 7.2, hemoglobin 9.9, hematocrit 31.0, platelet count 349. Sodiu m 136, potassium 4.2, BUN 17, creatinine 0.86. ASSESSMENT AND PLAN: 1. Status post right knee arthroplasty. The patient is currently stable. Continue PT, OT. Continu e pain control. 2. Hypertension. Continue the current blood pressure regimen. 3. Anemia. Continue to monitor hemoglobin and hematocrit levels. 4. Chronic pain syndrome. Continue the current pain regimen. 5. History of polysubstance abuse. 6. Gastrointestinal and deep venous thrombosis prophylaxis. Continue proton pump inhibitor and Xar elto. Dictated By: EMILY SCHROEDER/RANDALL Conf#: [id number] DID#: [id number]
[2016-07-15] MEDS: METOPROLOL 25 MG TAB PO SCH ×2 (09:00→20:20)
[2016-07-15] MEDS: HYDROCODONE/APAP (10/325) TAB PO PRN (09:40)
[2016-07-15] MEDS: DOCUSATE SODIUM 100 MG CAP PO SCH ×2 (09:40→20:19)
--- NOTE | 2016-07-15 11:55 | CONS ---
Date/Time of Note Date/Time of Note DATE: 07/15/16 TIME: 11:54 Consult Date/Type/Reason Admit Date/Time Jul 08, 2016 at 20:14 Subjective In good spirits Objective pulm-cta abd-soft s ambulation 200 feet Vital Signs Date Time Temp Pulse Resp B/P Pulse Ox O2 Delivery O2 Flow Rate FiO2 07/14/16 20:02 98.0 110 20 136/79 97 07/12/16 12:15 Room Air Intake and Output 07/14/16 07/14/16 07/15/16 15:00 23:00 07:00 Intake Total 720 ml 360 ml 1000 ml Output Total 650 ml 300 ml Balance 70 ml 60 ml 1000 ml Results/Medications Result Diagram: 07/15/16 0607 07/15/16 0607 Results 24 hrs Laboratory Tests Test 07/15/16 06:07 White Blood Count 7.2 Red Blood Count 3.00 L Hemoglobin 9.9 L Hematocrit 31.0 L Mean Corpuscular Volume 103.3 H Mean Corpuscular Hemoglobin 33.0 Mean Corpuscular Hemoglobin Concent 31.9 L Red Cell Distribution Width 12.0 Platelet Count 349 # Mean Platelet Volume 9.3 Neutrophils % 40.0 Lymphocytes % 43.2 Monocytes % 13.4 H Eosinophils % 2.5 Basophils % 0.6 Nucleated Red Blood Cells % 0.0 Neutrophils # 2.9 Lymphocytes # 3.1 H Monocytes # 1.0 H Eosinophils # 0.2 Basophils # 0.0 Nucleated Red Blood Cells # 0.0 Sodium Level 136 Potassium Level 4.2 Chloride Level 102 Carbon Dioxide Level 31 Anion Gap 7 L Blood Urea Nitrogen 17 Creatinine 0.86 Glucose Level 99 Calcium Level 8.7 Phosphorus Level 3.9 Magnesium Level 1.9 Medications Current Medications Metoprolol Tartrate (Lopressor) 25 mg BID PO Last administered on 07/14/16 21: 25; Admin Dose 25 MG; Start 07/08/16 at 21:30 Rivaroxaban (Xarelto) 10 mg DAILY@17 PO Last administered on 07/14/16 17:12; Admin Dose 10 MG; Start 07/09/16 at 17:00 Hydralazine HCl (Apresoline) 50 mg TID PO Last administered on 07/14/16 21:24 ; Admin Dose 50 MG; Start 07/08/16 at 21:30 Ondansetron HCl (Zofran Inj) 4 mg Q4H PRN IV NAUSEA AND/OR VOMITING; Start at 21:30 Senna (Senokot) 1 tab HS PRN PO CONSTIPATION; Start 07/08/16 at 21:30 Morphine Sulfate (morphine) 3 mg Q3H PRN IV SEVERE PAIN LEVEL 7-10 Last administered on 07/15/16 04:22; Admin Dose 3 MG; Start 07/08/16 at 21:30 Acetaminophen/ Hydrocodone Bitart ([place] (10/325)) 1 tab Q4H PRN PO MILD PAIN LEVEL 1-3; Start 07/08/16 at 21:30 Acetaminophen/ Hydrocodone Bitart ([place] (10/325)) 2 tab Q4H PRN PO MODERATE PAIN LEVEL 4-6 Last administered on 07/15/16 09:40; Admin Dose 2 TAB; Start at 21:30 Pantoprazole (Protonix Tab) 40 mg DAILY@06 PO Last administered on 07/15/16 05 :48; Admin Dose 40 MG; Start 07/09/16 at 10:30 Docusate Sodium (Colace) 100 mg BID PO Last administered on 07/15/16 09:40; Admin Dose 100 MG; Start 07/10/16 at 21:00 Assessment/Plan Additional Assessment/Plan Rehab- right total knee replacement. Working towrds d/c tomorrow Acute pain syndrome-improved History of substance abuse. Hypertension. DARYL PORTER MD Jul 15, 2016 11:55
[2016-07-15] MEDS: RIVAROXABAN 10 MG TABLET PO SCH (17:39)
[2016-07-15 20:13] VITALS: BP 119/80; PULSE 111; RESP 18
[2016-07-16] MEDS: HYDROCODONE/APAP (10/325) TAB PO PRN ×2 (03:01→10:08)
[2016-07-16] MEDS: PANTOPRAZOLE (EC) 40 MG TAB PO SCH (06:38)
[2016-07-16 07:30] VITALS: BP 125/73; RESP 20
--- NOTE | 2016-07-16 08:32 | PN ---
DATE: 07/16/2016 SUBJECTIVE: The patient is stable. No acute events overnight. No fevers, chills, nausea or vomiti ng. No shortness of breath. OBJECTIVE: VITAL SIGNS: Blood pressure 119/80, respirations 18, pulse 111, temperature 97.7. HEENT: Head is normocephalic. NECK: Supple. HEART: Regular rate. LUNGS: Showed diminished breath sounds at the base. ABDOMEN: Soft, nontender to palpation. No rebound or guarding. EXTREMITIES: Negative for clubbing or cyanosis. No edema. DERMATOLOGIC: No rashes. MUSCULOSKELETAL: Have no joint effusion. NEUROLOGIC: No change in exam. MEDICATIONS: The patient's medication were reviewed. LABORATORY DATA: Has been reviewed. ASSESSMENT AND PLAN: 1. Status post total right knee arthroplasty. The patient is currently stable. Continue PT and OT. 2. Hypertension. Continue the current blood pressure regimen. 3. Anemia. Continue to monitor hemoglobin and hematocrit levels. 4. Chronic pain syndrome. Continue the current pain regimen. 5. Gastrointestinal and deep venous thrombosis prophylaxis. Continue PPI and Xarelto. Dictated By: EMILY SCHROEDER/RANDALL Conf#: [id number] DID#: [id number]
[2016-07-16] MEDS: DOCUSATE SODIUM 100 MG CAP PO SCH (08:54)
[2016-07-16] MEDS: morphine 4 MG/ML VIAL IV PRN (08:55)
== END 2016-07-16 11:30 | disposition home health service (06) | DRG 561 ==
LOC: VRC 20:14
PROVIDERS: ADMIT Physical Medicine & Rehabilitation; ATTEND Internal Medicine Nephrology
PROC: F07Z5ZZ Bed Mobility Treatment (ICD-10-PCS; principal; 2016-07-08)
PROC: F08Z2ZZ Grooming/Personal Hygiene Treatment (ICD-10-PCS; 2016-07-08)
DX: Z47.1 Aftercare following joint replacement surgery (principal); M25.561 Pain in right knee; I10 Essential (primary) hypertension; Z96.651 Presence of right artificial knee joint; D64.9 Anemia, unspecified; G89.4 Chronic pain syndrome
CPT/HCPCS: 80048; 80053; 81003; 83735; 84100; 85025; 87081; 87086; 97110; 97112; 97116; 97150; 97162; 97166; 97530; 97535; J2270